=== PATIENT | female | born 1990 | race Caucasian/White ===

== ENCOUNTER 2021-09-15 14:42 | Inpatient (IN) | payer OTHER ==
[2021-09-15 15:06] VITALS: BMI 33.4
[2021-09-15] MEDS ORDERED: NALOXONE HCL 0.4 MG/ML VIAL IM PRN (15:46)
[2021-09-15] MEDS ORDERED: DICYCLOMINE HCL 10 MG CAPSULE PO PRN (15:46)
[2021-09-15] MEDS ORDERED: MAGNESIUM HYDROX 2400MG/30ML ORAL SUSPENSION 30 ML CUP PO PRN (15:46)
[2021-09-15] MEDS ORDERED: NICOTINE 10 MG CARTRIDGE (INHALER) IH PRN (15:46)
[2021-09-15] MEDS ORDERED: MAG HYDROX/AL HYDROX/SIMETH 30 ML UNIT-DOSE CUP PO PRN (15:46)
[2021-09-15] MEDS ORDERED: methaDONE HCL 10 MG TABLET (FOR DETOX USE ONLY) PO ONE (15:46)
[2021-09-15] MEDS ORDERED: IBUPROFEN 400 MG TABLET (FP) PO PRN (15:46)
[2021-09-15] MEDS ORDERED: LOPERAMIDE HCL 2 MG CAPSULE PO PRN (15:46)
[2021-09-15] MEDS ORDERED: MAGNESIUM CITRATE 300 ML BOTTLE PO PRN (15:46)
[2021-09-15] MEDS ORDERED: ACETAMINOPHEN 325 MG TABLET (FP) PO PRN (15:46)
[2021-09-15] MEDS ORDERED: BISMUTH SUBSALICYLATE 524 MG/30 ML PO PRN (15:46)
[2021-09-15] MEDS: NICOTINE 7 MG/24 HOURS TOPICAL PATCH TD SCH (19:28)
[2021-09-15] MEDS: MELATONIN 5 MG TABLETS PO SCH (23:20)
[2021-09-15] MEDS: THIAMINE HCL 100 MG TABLET (FP) PO SCH (23:23)
[2021-09-16] MEDS: METHOCARBAMOL 500 MG TABLET PO PRN ×2 (05:29→17:55)
[2021-09-16] MEDS ORDERED: methaDONE HCL 10 MG TABLET (FOR DETOX USE ONLY) ONE (09:05)
[2021-09-16] MEDS: PRENATAL VITAMINS W/ FOLIC ACID TABLET (FP) PO SCH (11:00)
[2021-09-16] MEDS: NICOTINE 7 MG/24 HOURS TOPICAL PATCH TD SCH (11:01)
[2021-09-16 11:42] LABS: HEMATOCRIT 43.1 % (32.4-45.2); HEMOGLOBIN 14.1 GM/dL (10.7-15.3); MCH 30.9 pg (25.7-33.7); MCHC 32.7 g/dl (32.0-36.0); MEAN CELL VOLUME 94.7 fl (80-96); MEAN PLT VOLUME 9.4 fl (7.5-11.1); PLATELET COUNT 199 10^3/uL (134-434); RBC 4.56 M/mm3 (3.60-5.2); RDW 13.1 % (11.6-15.6)
[2021-09-16 11:52] LABS: CALCIUM 8.9 mg/dL (8.5-10.1)
[2021-09-16 11:53] LABS: ALBUMIN 3.5 g/dl (3.4-5.0); BLOOD UREA NITROGEN 8.4 mg/dL (7-18)
[2021-09-16 11:56] LABS: CREATININE 0.6 mg/dL (0.55-1.3)
[2021-09-16 11:57] LABS: BILIRUBIN,TOTAL 0.7 mg/dL (0.2-1); TOT PROT 6.6 g/dl (6.4-8.2)
[2021-09-16] MEDS: cloNIDine HCL 0.1 MG TABLET PO PRN ×2 (17:55→22:53)
[2021-09-16] MEDS: IBUPROFEN 600 MG TABLET (FP) PO PRN (22:53)
[2021-09-16] MEDS: MELATONIN 5 MG TABLETS PO SCH (22:53)
[2021-09-16] MEDS: THIAMINE HCL 100 MG TABLET (FP) PO SCH (22:53)
[2021-09-17] MEDS: METHOCARBAMOL 500 MG TABLET PO PRN ×2 (05:14→18:41)
[2021-09-17] MEDS: cloNIDine HCL 0.1 MG TABLET PO PRN ×3 (09:11→22:56)
[2021-09-17] MEDS: NICOTINE 7 MG/24 HOURS TOPICAL PATCH TD SCH (09:11)
[2021-09-17] MEDS: PRENATAL VITAMINS W/ FOLIC ACID TABLET (FP) PO SCH (09:15)
[2021-09-17] MEDS ORDERED: methaDONE HCL 10 MG TABLET (FOR DETOX USE ONLY) PO ONE (10:00)
[2021-09-17] MEDS: ACETAMINOPHEN 325 MG TABLET (FP) PO PRN (11:23)
[2021-09-17] MEDS: diazePAM 5 MG TABLET PO SCH ×2 (11:23→22:56)
[2021-09-17] MEDS: IBUPROFEN 600 MG TABLET (FP) PO PRN (18:40)
[2021-09-17] MEDS: THIAMINE HCL 100 MG TABLET (FP) PO SCH (22:56)
[2021-09-17] MEDS: MELATONIN 5 MG TABLETS PO SCH (22:58)
[2021-09-18] MEDS: ACETAMINOPHEN 325 MG TABLET (FP) PO PRN ×2 (05:34→14:27)
[2021-09-18] MEDS: METHOCARBAMOL 500 MG TABLET PO PRN ×3 (05:34→18:05)
[2021-09-18] MEDS ORDERED: methaDONE HCL 10 MG TABLET (FOR DETOX USE ONLY) ONE (09:31)
[2021-09-18] MEDS: PRENATAL VITAMINS W/ FOLIC ACID TABLET (FP) PO SCH (10:22)
[2021-09-18] MEDS: NICOTINE 7 MG/24 HOURS TOPICAL PATCH TD SCH (10:23)
[2021-09-18] MEDS: IBUPROFEN 600 MG TABLET (FP) PO PRN (18:06)
[2021-09-18] MEDS: THIAMINE HCL 100 MG TABLET (FP) PO SCH (22:27)
[2021-09-18] MEDS: MELATONIN 5 MG TABLETS PO SCH (22:27)
[2021-09-19] MEDS: ACETAMINOPHEN 325 MG TABLET (FP) PO PRN (06:26)
[2021-09-19] MEDS: METHOCARBAMOL 500 MG TABLET PO PRN (06:28)
[2021-09-19] MEDS ORDERED: MELATONIN 5 MG TABLETS PO SCH (09:15)
[2021-09-19] MEDS: PRENATAL VITAMINS W/ FOLIC ACID TABLET (FP) PO SCH (09:24)
[2021-09-19] MEDS: NICOTINE 7 MG/24 HOURS TOPICAL PATCH TD SCH (09:24)
[2021-09-19] MEDS ORDERED: methaDONE HCL 10 MG TABLET (FOR DETOX USE ONLY) PO ONE (10:00)
[2021-09-19 10:08] VITALS: BP 102/71; PULSE 90; TEMP 98
[2021-09-19] MEDS ORDERED: diazePAM 5 MG TABLET PO ONE (14:00)
== END 2021-09-19 12:02 | disposition home or self-care (01) | DRG 773 ==
LOC: YASAS 14:42 → Y6N 18:21
PROVIDERS: ADMIT Allergy & Immunology; ATTEND Surgery
PROC: HZ2ZZZZ Detoxification Services for Substance Abuse Treatment (ICD-10-PCS; principal; 2021-09-15)
DX: F11.23 Opioid dependence with withdrawal (principal); F17.210 Nicotine dependence, cigarettes, uncomplicated; Z28.310 Unvaccinated for COVID-19; Z88.8 Allergy status to other drugs, medicaments and biological substances
CPT/HCPCS: 36415; 80053; 81025; 85027; 86780; 93005; 93010; C9803-CS; J0735; U0003; U0005